=== PATIENT | male | born 1935 | race Caucasian/White ===

== ENCOUNTER 2017-02-13 11:06 | Outpatient (CLI) | payer MEDICARE, OTHER | END 2017-02-13 11:07 | disposition home or self-care (01) | LOC: SC 11:06 | PROVIDERS: ATTEND Nurse Practitioner Family | DX: G47.33 Obstructive sleep apnea (adult) (pediatric) (principal) | CPT/HCPCS: 99214; G0463; 99212 ==

== ENCOUNTER 2017-02-14 07:10 | Outpatient (CLI) | payer MEDICARE, OTHER ==
[2017-02-14 12:38] LABS: BASOPHILS % (AUTO) 0.3 %; EOSINOPHILS # (AUTO) 0.4 10^3/uL (0.0-0.7); EOSINOPHILS % (AUTO) 5.6 %; HCT - HEMATOCRIT 45.6 % (42.0-52.0); HGB - HEMOGLOBIN 15.1 g/dL (14.0-18.0); LYMPHOCYTES % (AUTO) 27.7 %; MEAN CORPUSCULAR VOLUME 90.7 fL (80.0-94.0); MEAN PLATELET VOLUME 9.4 fL (7.4-11.4); MONOCYTES # (AUTO) 0.9 10^3/uL (0.0-1.0); MONOCYTES % (AUTO) 12.8 %; NEUTROPHILS # (AUTO) 3.9 10^3/uL (1.5-6.6); NEUTROPHILS % (AUTO) 53.6 %; NUCLEATED RED BLOOD CELLS AUTO 0.1 /100WBC; RED BLOOD COUNT 5.03 10^6/uL (4.70-6.10); RED CELL DISTRIBUTION WIDTH 13.5 % (12.0-15.0); UNCORRECTED WHITE BLOOD COUNT 7.2 x10^3/uL; WHITE BLOOD COUNT 7.2 x10^3/uL (4.8-10.8)
[2017-02-14 13:07] LABS: ALBUMIN/GLOBULIN RATIO 1.7 (1.0-2.2); BILIRUBIN,TOTAL 0.4 mg/dL (0.2-1.0); BUN - BLOOD UREA NITROGEN 22 mg/dL (6-20); CALCIUM 9.1 mg/dL (8.5-10.3); CARBON DIOXIDE - CO2 28 mmol/L (21-32); CHLORIDE 104 mmol/L (101-111); CHOL/HDL RATIO 4.4 (<5.0); CHOLESTEROL 160 mg/dL; CREATININE 1.4 mg/dL (0.6-1.2); GFR - MDRD 48 (>89); GLUCOSE 104 mg/dL (70-100); HDL CHOLESTEROL 36 mg/dL; LDL/HDL RATIO 2.7 (<3.6); POTASSIUM 4.3 mmol/L (3.5-5.0); SODIUM 138 mmol/L (135-145); TOTAL PROTEIN 6.9 g/dL (6.7-8.2); TRIGLYCERIDES 133 mg/dL; VLDL CHOLESTEROL 27 mg/dL
== END 2017-02-14 07:11 | disposition home or self-care (01) ==
LOC: LAB.WCP 07:10
PROVIDERS: ATTEND Family Medicine
DX: C61 Malignant neoplasm of prostate (principal); E78.2 Mixed hyperlipidemia; K21.9 Gastro-esophageal reflux disease without esophagitis
CPT/HCPCS: 36415; 80053; 80061; 84443; 85025; G0103; 84153

== ENCOUNTER 2017-12-14 07:06 | Outpatient (CLI) | payer MEDICARE, OTHER ==
[2017-12-14 12:22] LABS: BASOPHILS % (AUTO) 0.4 %; EOSINOPHILS # (AUTO) 0.3 10^3/uL (0.0-0.7); EOSINOPHILS % (AUTO) 4.2 %; HGB - HEMOGLOBIN 14.4 g/dL (14.0-18.0); LYMPHOCYTES # (AUTO) 1.7 10^3/uL (1.5-3.5); LYMPHOCYTES % (AUTO) 25.8 %; MEAN CORPUSCULAR HEMOGLOBIN 30.4 pg (27.0-31.0); MEAN CORPUSCULAR VOLUME 92.1 fL (80.0-94.0); MONOCYTES # (AUTO) 0.9 10^3/uL (0.0-1.0); MONOCYTES % (AUTO) 13.2 %; NEUTROPHILS # (AUTO) 3.6 10^3/uL (1.5-6.6); NEUTROPHILS % (AUTO) 56.4 %; PLT - PLATELET COUNT 240 10^3/uL (130-450); RED BLOOD COUNT 4.73 10^6/uL (4.70-6.10); RED CELL DISTRIBUTION WIDTH 13.6 % (12.0-15.0); WHITE BLOOD COUNT 6.4 x10^3/uL (4.8-10.8)
[2017-12-14 12:40] LABS: ALBUMIN 4.2 g/dL (3.2-5.5); ALBUMIN/GLOBULIN RATIO 1.6 (1.0-2.2); ALKALINE PHOSPHATASE 35 IU/L (42-121); ALT ALANINE AMINOTRANSFERASE 21 IU/L (10-60); AST ASPARTATE AMINOTRANSFERASE 23 IU/L (10-42); BILIRUBIN,TOTAL 0.9 mg/dL (0.2-1.0); BUN - BLOOD UREA NITROGEN 19 mg/dL (6-20); CALCIUM 9.2 mg/dL (8.5-10.3); CARBON DIOXIDE - CO2 27 mmol/L (21-32); CHLORIDE 103 mmol/L (101-111); CHOLESTEROL 152 mg/dL; CREATININE 1.2 mg/dL (0.6-1.2); GFR - MDRD 58 (>89); GLUCOSE 108 mg/dL (70-100); HDL CHOLESTEROL 38 mg/dL; LDL CHOLESTEROL,CALCULATED 96 mg/dL; LDL/HDL RATIO 2.5 (<3.6); SODIUM 138 mmol/L (135-145); TOTAL PROTEIN 6.8 g/dL (6.7-8.2); VLDL CHOLESTEROL 18 mg/dL
== END 2017-12-14 07:07 | disposition home or self-care (01) ==
LOC: LAB.WCP 07:06
PROVIDERS: ATTEND Family Medicine
DX: C61 Malignant neoplasm of prostate (principal); E78.2 Mixed hyperlipidemia
CPT/HCPCS: 36415; 80053; 80061; 83721; 84153; 84443; 85025

== ENCOUNTER 2018-02-05 14:33 | Outpatient (CLI) | payer MEDICARE, OTHER | END 2018-02-05 14:34 | disposition home or self-care (01) | LOC: SC 14:33 | PROVIDERS: ATTEND Nurse Practitioner Family | DX: G47.33 Obstructive sleep apnea (adult) (pediatric) (principal) | CPT/HCPCS: 99214; G0463; 99212 ==

== ENCOUNTER 2018-03-12 08:00 | Outpatient (CLI) | payer MEDICARE, OTHER | END 2018-03-12 08:01 | disposition home or self-care (01) | LOC: LAB.WCP 08:00 | PROVIDERS: ATTEND Family Medicine | DX: M79.662 Pain in left lower leg (principal) | CPT/HCPCS: 36415; 85379 ==

== ENCOUNTER 2018-03-22 16:02 | Outpatient (CLI) | payer MEDICARE, OTHER ==
--- NOTE | 2018-03-23 10:39 | Ultrasound Report ---
Reason: SHOULDER JOINT PAIN, LEFT,RUPTURED BAKERS CYST Procedure Date: 03/22/2018 Accession Number: [id number] / [id number] Procedure: US - Ext Limited Non Vascular CPT Code: FULL RESULT: EXAM: LEFT LOWER EXTREMITY ULTRASOUND - LIMITED EXAM DATE: 03/22/2018 04:33 PM. CLINICAL HISTORY: Left shoulder joint pain, ruptured Dimas's cyst. COMPARISON: None. TECHNIQUE: Real-time scanning was performed with static images obtained. FINDINGS: In the region of the left popliteal fossa is a relatively well demarcated hypoechoic heterogeneous mass measuring 3.9 x 1.5 x 1.9 cm which demonstrates scant apparent internal vascularity. This does not definitely communicate with the joint space via the semimembranosus/medial head of the gastrocnemius interspace. IMPRESSION: The appearance is not consistent with a ruptured or typical Dimas's cyst. An evolving hematoma within a Dimas's cyst can have this appearance, though a communication with the knee joint space between the semimembranosus and medial head of the gastrocnemius is not definitely identified to make this characterization. The sharp demarcation seen in relation to nearby muscle fascial compartments is suggestive of the possibility of a musculotendinous tear with hematoma versus uncharacterized mass. Radiologically, next steps would be a CT with intravenous contrast or MRI of the knee with and without contrast extending to include the entire popliteal fossa. [facility]
--- NOTE | 2018-03-23 13:16 | MRI Report ---
Reason: SHOULDER JOINT PAIN, LEFT,RUPTURED BAKERS CYST Procedure Date: 03/22/2018 Accession Number: [id number] / [id number] Procedure: MRI - Shoulder LT W/O CPT Code: FULL RESULT: EXAM: LEFT SHOULDER MRI WITHOUT CONTRAST EXAM DATE: 03/22/2018 06:03 PM. CLINICAL HISTORY: Shoulder joint pain. COMPARISON: Radiographs 01/10/2018. TECHNIQUE: Multiplanar, multisequence T1-weighted and fluid-sensitive sequences of the shoulder without contrast. Other: None. FINDINGS: Evaluation mildly limited by patient motion and artifact despite repeat sequences. Acromioclavicular Region: The acromion is type II with small subacromial enthesophyte. Mild degenerative change of the joint with small inferiorly directed osteophytes and minimal joint effusion. The coracoacromial and coracoclavicular ligaments are intact. Mild subacromial/subdeltoid bursal fluid. Moderate fluid in the subcoracoid bursa. Glenohumeral Region: Minimal superior subluxation of the humeral head. Minimal joint fluid. Diffuse shallow partial-thickness cartilage loss. The glenohumeral ligaments and joint capsule are unremarkable. Bone Marrow: No fracture. 1.7 cm lobulated lesion in the posterior lateral aspect proximal humeral metadiaphysis with sclerotic borders and no adjacent edema, suggestive of benign lesion such as enchondroma. Labrum: Degenerative fraying posterior superior aspect. Musculature/Rotator Cuff: Moderate supraspinatus tendinopathy with deep partial thickness intrasubstance and articular surface tear at the anterior and central fibers involving a 2.0 x 3.6 cm region, AP by transverse. This involves greater than 50% of the tendon thickness. Possible focal full-thickness extension to the bursal surface at the central fibers at the level of the acromion. Mild infraspinatus tendinopathy. Teres minor tendon intact. Mild subscapularis tendinopathy with subtle partial thickness undersurface tearing at the mid to superior insertion. No edema or fatty atrophy. Biceps Tendon: The long head of the biceps tendon and biceps waqas are intact. Other: The subcutaneous tissues are unremarkable. IMPRESSION: 1. Moderate supraspinatus tendinopathy with deep partial thickness intrasubstance and articular surface tear anterior and central fibers. Possible full-thickness extension at the central fibers. 2. Mild infraspinatus tendinopathy. 3. Mild subscapularis tendinopathy with minimal undersurface tearing at the insertion. 4. Degenerative fraying posterior superior labrum. 5. Moderate subacromial subdeltoid bursitis. 6. Subacromial enthesophyte and acromioclavicular osteophytes may contribute to symptoms of impingement. [facility] MUSCULOSKELETAL RADIOLOGY SECTION
== END 2018-03-22 16:03 | disposition home or self-care (01) ==
LOC: DI 16:02
PROVIDERS: ATTEND Family Medicine
DX: M67.814 Other specified disorders of tendon, left shoulder (principal); M75.52 Bursitis of left shoulder; M25.712 Osteophyte, left shoulder; M66.0 Rupture of popliteal cyst
CPT/HCPCS: 76882

== ENCOUNTER 2018-03-29 08:00 | Outpatient (CLI) | payer MEDICARE, OTHER ==
[2018-03-29 13:52] LABS: CALCIUM 9.2 mg/dL (8.5-10.3); CREATININE 1.2 mg/dL (0.6-1.2)
== END 2018-03-29 23:59 | disposition home or self-care (01) ==
LOC: LAB.WCP 08:00
PROVIDERS: ATTEND Family Medicine
DX: N18.9 Chronic kidney disease, unspecified (principal)
CPT/HCPCS: 36415; 80048

== ENCOUNTER 2018-04-03 15:25 | Outpatient (CLI) | payer MEDICARE, OTHER ==
[2018-04-03] MEDS ORDERED: GADOBUTROL 10 MMOL/10 ML VIAL ONE (15:59)
[2018-04-03] MEDS ORDERED: GADOBUTROL 10 MMOL/10 ML VIAL IVP ONE (17:52)
--- NOTE | 2018-04-04 15:15 | MRI Report ---
Reason: RUPTURED BAKERS CYST Procedure Date: 04/03/2018 Accession Number: [id number] / [id number] Procedure: MRI - Knee LT W/WO CPT Code: FULL RESULT: EXAM: LEFT KNEE MRI WITHOUT AND WITH CONTRAST EXAM DATE: 04/03/2018 06:09 PM. CLINICAL HISTORY: Ruptured Dimas's cyst. COMPARISON: Radiograph 11/01/2017. TECHNIQUE: Multiplanar, multisequence T1-weighted and fluid-sensitive sequences of the knee before and after administration of intravenous contrast. IV contrast: 10 mL Gadavist. Other: None. FINDINGS: Bones: Mild tricompartmental osteophytes are present. Periarticular reactive marrow edema is in the medial compartment. Articular Cartilage: Lateral compartment articular cartilage is intact. There is full-thickness cartilage loss at the inferior portion of the medial femoral condyle. Moderate medial tibial plateau articular cartilage thinning is present. Medial Meniscus: A horizontal tear of the posterior horn of the medial meniscus as seen on series 601, image 23. Lateral Meniscus: The anterior horn of the lateral meniscus demonstrates a longitudinal tear as seen on series 601, image 7. Cruciate Ligaments: The anterior and posterior cruciate ligaments are intact. Collateral Ligaments: The medial collateral and lateral collateral ligamentous structures are intact. Tendons: The quadriceps, patellar, semimembranosus, and popliteus tendons are unremarkable. Musculature: The patient has a cyst within the popliteus muscle that potentially contains a loose body measuring 9 mm (401/8). This could be the result of a prior ganglion cyst or a tear within the muscle. Other: A mild effusion is accompanied by synovitis. A moderate-sized popliteal cyst is ruptured. No popliteal cyst. The medial and lateral retinacula are intact. Prepatellar subcutaneous edema is present. IMPRESSION: 1. Mild osteoarthritis. 2. Tears of the medial and lateral menisci. 3. Ruptured popliteal cyst. 4. Remnants of either grade 2 strain or ganglion cyst in the popliteus muscle. [facility] MUSCULOSKELETAL RADIOLOGY SECTION
== END 2018-04-03 15:26 | disposition home or self-care (01) ==
LOC: DI 15:25
PROVIDERS: ATTEND Family Medicine
DX: M66.0 Rupture of popliteal cyst (principal); S83.242A Other tear of medial meniscus, current injury, left knee, initial encounter; S83.282A Other tear of lateral meniscus, current injury, left knee, initial encounter; M17.12 Unilateral primary osteoarthritis, left knee
CPT/HCPCS: 73723; A9585

== ENCOUNTER 2018-04-09 11:13 | Outpatient (CLI) | payer MEDICARE, OTHER ==
[2018-04-09 19:22] LABS: BASOPHILS % (AUTO) 0.5 %; EOSINOPHILS # (AUTO) 0.2 10^3/uL (0.0-0.7); EOSINOPHILS % (AUTO) 3.3 %; HGB - HEMOGLOBIN 13.9 g/dL (14.0-18.0); LYMPHOCYTES # (AUTO) 2.3 10^3/uL (1.5-3.5); LYMPHOCYTES % (AUTO) 31.9 %; MEAN CORPUSCULAR HEMOGLOBIN 30.2 pg (27.0-31.0); MEAN CORPUSCULAR HGB CONC 32.2 g/dL (32.0-36.0); MEAN CORPUSCULAR VOLUME 93.8 fL (80.0-94.0); MEAN PLATELET VOLUME 9.6 fL (7.4-11.4); MONOCYTES % (AUTO) 14.6 %; NEUTROPHILS # (AUTO) 3.5 10^3/uL (1.5-6.6); NEUTROPHILS % (AUTO) 49.7 %; PLT - PLATELET COUNT 273 10^3/uL (130-450); RED BLOOD COUNT 4.61 10^6/uL (4.70-6.10); RED CELL DISTRIBUTION WIDTH 13.9 % (12.0-15.0); WHITE BLOOD COUNT 7.1 x10^3/uL (4.8-10.8)
[2018-04-09 19:49] LABS: CRP - C-REACTIVE PROTEIN < 1.0 mg/dL (0-1.0); URIC ACID 5.7 mg/dL (2.6-7.2)
[2018-04-09 19:52] LABS: RHEUMATOID FACTOR NEGATIVE (Negative)
[2018-04-11 13:50] LABS: ANA SCREEN NEGATIVE (NEGATIVE)
== END 2018-04-09 23:59 | disposition home or self-care (01) ==
LOC: LAB.WCP 11:13
PROVIDERS: ATTEND Orthopaedic Surgery
DX: Z87.39 Personal history of other diseases of the musculoskeletal system and connective tissue (principal); M75.52 Bursitis of left shoulder
CPT/HCPCS: 36415; 84550; 85025; 85651; 86038; 86140; 86430

== ENCOUNTER 2019-02-15 07:29 | Outpatient (CLI) | payer MEDICARE, OTHER ==
[2019-02-15 12:23] LABS: BASOPHILS % (AUTO) 0.5 %; EOSINOPHILS # (AUTO) 0.3 10^3/uL (0.0-0.7); EOSINOPHILS % (AUTO) 3.9 %; HGB - HEMOGLOBIN 14.6 g/dL (14.0-18.0); LYMPHOCYTES % (AUTO) 25.5 %; MEAN CORPUSCULAR HEMOGLOBIN 29.1 pg (27.0-31.0); MEAN CORPUSCULAR HGB CONC 30.8 g/dL (32.0-36.0); MEAN CORPUSCULAR VOLUME 94.4 fL (80.0-94.0); MEAN PLATELET VOLUME 11.3 fL (7.4-11.4); MONOCYTES # (AUTO) 0.9 10^3/uL (0.0-1.0); MONOCYTES % (AUTO) 11.7 %; NEUTROPHILS # (AUTO) 4.4 10^3/uL (1.5-6.6); PLT - PLATELET COUNT 270 10^3/uL (130-450); RED BLOOD COUNT 5.02 10^6/uL (4.70-6.10); RED CELL DISTRIBUTION WIDTH 13.3 % (12.0-15.0); WHITE BLOOD COUNT 7.7 x10^3/uL (4.8-10.8)
[2019-02-15 12:36] LABS: ALBUMIN 4.1 g/dL (3.2-5.5); ALBUMIN/GLOBULIN RATIO 1.6 (1.0-2.2); ALKALINE PHOSPHATASE 47 IU/L (42-121); ALT ALANINE AMINOTRANSFERASE 25 IU/L (10-60); AST ASPARTATE AMINOTRANSFERASE 21 IU/L (10-42); BILIRUBIN,TOTAL 0.6 mg/dL (0.2-1.0); BUN - BLOOD UREA NITROGEN 15 mg/dL (6-20); CALCIUM 9.3 mg/dL (8.5-10.3); CARBON DIOXIDE - CO2 30 mmol/L (21-32); CHLORIDE 102 mmol/L (101-111); CHOL/HDL RATIO 4.7 (<5.0); CHOLESTEROL 187 mg/dL; CREATININE 1.1 mg/dL (0.6-1.2); GFR - MDRD 64 (>89); GLUCOSE 113 mg/dL (70-100); HDL CHOLESTEROL 40 mg/dL; LDL CHOLESTEROL,CALCULATED 114 mg/dL; LDL/HDL RATIO 2.9 (<3.6); SODIUM 140 mmol/L (135-145); TOTAL PROTEIN 6.7 g/dL (6.7-8.2); VLDL CHOLESTEROL 33 mg/dL
== END 2019-02-15 23:59 | disposition home or self-care (01) ==
LOC: LAB.N 07:29
PROVIDERS: ATTEND Family Medicine
DX: E78.2 Mixed hyperlipidemia (principal)
CPT/HCPCS: 36415; 80053; 80061; 83721; 84443; 85025

== ENCOUNTER 2019-02-19 12:50 | Outpatient (CLI) | payer MEDICARE, OTHER ==
[2019-02-19 13:44] VITALS: BP 138/70
--- NOTE | 2019-02-19 13:44 | SLEEP CARE CONSULTATION ---
Information from patient questionnaire entered by Viridiana Cruz. I have reviewed and concur with the information entered by Viridiana Cruz. This document represents the service I personally performed and the decisions made by me, Darcy Lino, RN, MSN, STONE OPERATOR. History of Present Illness Previous diagnosis: Moderate, Obstructive Sleep Apnea-Hypopnea Syndrome AHI: 26.4 Reason for CPAP/BiPAP follow up: annual Equipment type: CPAP Equipment obtained from: [employer] Mask style: Nasal Backup mask available: Yes Last cushion change: a month ago Prior sleep studies: Yes HPI additional information: Additional medical information is that he had left knee replacement and gained weight as unable to work in garden for a while. CPAP Compliance Data - Data Reviewed with Patient Average duration of nightly device use: 7H 52M Compliance rate %: 100 Current pressure setting (cmH2O): 6 Humidity settin Average residual AHI: 1.1 Average large leak: 30 seconds Subjective Patient concerns: denies: aerophagia, mask discomfort, air blowing in eyes, mask leak noise, condensation in mask/hose, nasal congestion, dry mouth, nose, throat, epistaxis Observed to snore while using device: No Current pressure setting perceived as: comfortable On therapy, patient: reports: sleeping better, awakening more refreshed, being more awake and alert during the day, more rested overall. denies: drowsiness while driving Initial [place] Sleepiness Scale score: 4 Current [place] Sleepiness Scale score: 8 Allergies and Home Medications Known drug allergies: No Home medication list reviewed: Yes Allergy and home medication list: Medication Name (generic/name brand) Strength & Dosage Omeprazole 20mg cap one twice daily simvastatin 20mg bedtime Escitalopram 10mg tab one daily lisinopril 10mg one daily Tylenol Extra Strength OTC tab prn Motrin 200mg tab prn metamucil 1 tsp daily Review of Systems Review of systems same as previous: No (diagnosed with hypertension / reported one episode of brief chest pain) Physical Exam Blood Pressure: 138/70 Cuff size: long Heart Rate: 75 O2 Saturation: 97 Height: 5 ft 10 in Weight: 223 lb Body Mass Index: 32.0 BMI Classification: Obesity Class 1 Impression and Plan 1. Obstructive Sleep Apnea-Hypopnea Syndrome, moderate, with fair treatment compliance and good apnea control. On CPAP therapy, the patient has better sleep quality and is more rested overall. He is aware of cleaning methods and how often to obtain supplies. He has gained weight and is now class 2 obesity. I discussed how his weight can increase his apnea risk and overall health risks. He is advised to lose weight by reducing portion size and staying away from refined foods. He can discuss further with Dr. Awad. Patient's apnea severity and rationale for treatment to reduce apnea, improve sleep quality and reduce cardiovascular and cerebrovascular events was reviewed. I also reviewed the benefit of consistent device use of CPAP for hypertension, gastric reflux . Blood pressure reading good today but has been elevated at home despite new medication and patient wonders if his home monitor is working. He was advised to stop by his PCP clinic after this visit down the cantu to report his concerns about his blood pressure readings and check about how to have his BP monitor checked for accuracy there. Patient agreed with plan. 2. Chest pain, brief episode of chest pressure for less than a minute of moderate intensity reported to have occurred a few weeks ago while resting in bed. No shortness of breath, lightheadedness or radiation of pain. He did not discuss with his PCP at his last visit and was advised to inform him at his next follow up scheduled soon. He is aware of 911 guidelines when I reviewed and rationale for using if chest pain recurs, and if associated with other symptoms as noted on 911 reference card. * Continue CPAP pressure at 6 cmH2O * Notify me if snoring with mask or feeling that the pressure is too much or too little * Attempt to lose weight * Stop by clinic to check re elevated home BP readings and to check BP monitor accuracy * Follow up with Dr. Awad about chest pain. * Return for follow up in 1 year , or sooner if concerns arise I spent 100% of this 30 minute visit face to face with the patient with greater than 50% of this was spent time counseling the patient and coordination of care.
== END 2019-02-19 12:51 | disposition home or self-care (01) ==
LOC: SC 12:50
PROVIDERS: ATTEND Nurse Practitioner Family
DX: G47.33 Obstructive sleep apnea (adult) (pediatric) (principal); E66.9 Obesity, unspecified; Z68.32 Body mass index [BMI] 32.0-32.9, adult
CPT/HCPCS: 99214; G0463; 99212

== ENCOUNTER 2020-02-21 10:18 | Outpatient (CLI) | payer MEDICARE, OTHER ==
--- NOTE | 2020-02-21 10:52 | SLEEP CARE CONSULTATION ---
Information from patient questionnaire entered by Christina Chambers. I have reviewed and concur with the information entered by Christina Chambers. This document represents the service I personally performed and the decisions made by , Samra Edwards ARNP. History of Present Illness Service Date and Time: 02/21/2020 1018 Previous diagnosis: Moderate, Obstructive Sleep Apnea-Hypopnea Syndrome AHI: 26.4 (in 2007) Reason for follow up: annual (last seen 2019) Equipment type: CPAP Equipment obtained from: [facility] (needs to change, not able to get supplies) Mask style: Nasal Mask brand: Respironics Backup mask available: Yes (old mask) Last cushion change: last week Prior sleep studies: Yes Year and Where: 2007 - [facility] Type of Sleep Study: Polysomnography HPI additional information: WILMER HORTA was diagnosed to have moderate, AHI 26.4, obstructive sleep apnea- hypopnea syndrome and returned today for CPAP therapy annual follow-up. CPAP Compliance Data - Data Reviewed with Patient Average duration of nightly device use: 7 hours 52 minutes Compliance rate %: 98.9 Current pressure setting (cmH2O): 6 Humidity settin Average residual AHI: 2.4 Central apnea: 0.2 Obstructive apnea: 0.2 Average large leak: 7 minutes 43 seconds Subjective Patient concerns: denies: aerophagia, mask discomfort, air blowing in eyes, mask leak noise, condensation in mask/hose, nasal congestion, dry mouth, nose, throat, epistaxis, other Observed to snore while using device: No Current pressure setting perceived as: comfortable On therapy, patient: reports: sleeping better, awakening more refreshed, being more awake and alert during the day, more rested overall. denies: drowsiness while driving Initial [place] Sleepiness Scale score: 10 (in 2007) Current [place] Sleepiness Scale score: 5 Allergies and Home Medications Drug allergies reviewed: Yes (NKDA) Home medication list reviewed: Yes (no changes) Review of Systems Review of systems same as previous: Yes (no changes) Physical Exam Heart Rate: 87 O2 Saturation: 98 Height: 5 ft 10 in Weight: 215 lb Body Mass Index: 30.8 BMI Classification: Obese Impression and Plan 1. Obstructive Sleep Apnea-Hypopnea Syndrome, moderate, with good treatment compliance and good apnea control. On CPAP therapy, the patient has better sleep quality and is more rested overall. Patient has been with [employer] for supplies and they no longer are able to get him supplies. Patient was informed that another DME can be used. I will have my economic development coordinator inform of DME options. A DWO prescription will then be made. Patient advised to contact this office if further supply problems. Patient's apnea severity and rationale for treatment to reduce apnea, improve sleep quality and reduce cardiovascular and cerebrovascular events was reviewed. I also reviewed the benefit of consistent device use of CPAP for hypertension and gastric reflux. * Continue CPAP pressure at 6 cmH2O * Notify me if snoring with mask or feeling that the pressure is too much or too little * Attempt to lose weight * Call this office if any problems using CPAP * Return for follow up in 1 year , or sooner if concerns arise Counseling Topics: Spare mask Visit Type: In Office Time Spent with Patient (minutes): 18 Provider Statement: I spent 100% of the Face to Face Visit with the patient with greater than 50% spent counseling the patient and coordination of care.
== END 2020-02-21 10:19 | disposition home or self-care (01) ==
LOC: SC 10:18
PROVIDERS: ATTEND Nurse Practitioner Family
DX: G47.33 Obstructive sleep apnea (adult) (pediatric) (principal); E66.9 Obesity, unspecified; Z68.30 Body mass index [BMI] 30.0-30.9, adult
CPT/HCPCS: 99212; G0463

== ENCOUNTER 2021-03-02 09:40 | Outpatient (CLI) | payer MEDICARE, OTHER ==
[2021-03-02 10:34] VITALS: BP 132/74
--- NOTE | 2021-03-02 10:34 | SLEEP CARE CONSULTATION ---
Information from patient questionnaire entered by Rom Guerra MA. I have reviewed and concur with the information entered by oRm Guerra MA. This document represents the service I personally performed and the decisions made by , Samra Edwards ARNP. History of Present Illness Service Date and Time: 03/02/2021 0940 Previous diagnosis: Moderate, Obstructive Sleep Apnea-Hypopnea Syndrome AHI: 26.4 (in 2007) Reason for follow up: annual (last seen 01/2020) Equipment type: CPAP Equipment obtained from: [employer] (he has not gotten supplies over last year; tried to but did not get any) Mask style: Nasal Backup mask available: No (old mask) Last cushion change: don't know Prior sleep studies: Yes Year and Where: 2007 - [facility] Type of Sleep Study: Polysomnography HPI additional information: WILMER HORTA was diagnosed to have moderate, AHI 26.4, obstructive sleep apnea- hypopnea syndrome and returned today for CPAP therapy annual follow-up. Sleep Study - Results Type of Sleep Study: Polysomnography [facility] Yes [facility] Compliance Data - Data Reviewed with Patient Average duration of nightly device use: 8 hours 22 minutes Compliance rate %: 91.7 Current pressure setting (cmH2O): 6.0 Average residual AHI: 3.0 Average large leak: 11 minutes 41 seconds Compliance data discussion: Patient brought in his memory chip but it was blank. He states he went on a trip for 2 weeks and could not take his device with him, so there is no information for those weeks. He was instructed to bring in his machine so we can get his compliance information from the machine. Subjective Patient concerns: denies: aerophagia, mask discomfort, air blowing in eyes, mask leak noise, condensation in mask/hose, nasal congestion, dry mouth, nose, throat, epistaxis, other Observed to snore while using device: No Current pressure setting perceived as: comfortable On therapy, patient: reports: sleeping better, awakening more refreshed, being more awake and alert during the day, more rested overall. denies: drowsiness while driving Initial [place] Sleepiness Scale score: 10 (in 2007) Current [place] Sleepiness Scale score: 3 (2020) Allergies and Home Medications Home medication list reviewed: Yes Allergy and home medication list: Calcium B12 Review of Systems Review of systems same as previous: No (increasing memory issues - appt with PCP next week) Physical Exam Vital signs obtained and entered by: Mari ECHAVARRIA Blood Pressure: 132/74 (left) Cuff size: wrist Heart Rate: 76 O2 Saturation: 97 (with mask) Height: 5 ft 10 in Weight: 215 lb (without boots) Body Mass Index: 30.8 BMI Classification: Obese Impression and Plan 1. Obstructive Sleep Apnea-Hypopnea Syndrome, moderate, with good treatment compliance and good apnea control. On CPAP therapy, the patient has better sleep quality and is more rested overall. Patient has not been able to get any supplies from [employer]. He states he called them and they told him he needed a prescription. He states he had a good supply left so he just use those instead of ordering any new ones. He is now out of filters and needs to get supplies. The patients CPAP is over 5 years old and of reasonable use. Thus, the CPAP will be updated. A DWO prescription will be made. Compliance guidelines for new device and follow up discussed. Patient has already registered their device for the recall. Patient denies any black particles seen in machine or hoses, any unusual odors coming from device. Patient has not experienced any physical symptoms such as upper airway irritation, headache, skin or eye irritation, asthma, nausea/vomiting, difficulty breathing or chest pain. If patient is not able to sleep due to waking up choking, gasping for air or other respiratory distress that they may decide to continue using it until it is either replaced or repaired. Since the patients current machine is at least 5 years old the patient is opting to update their device with a device that is not on the recall. Patient voiced understanding and agreement with plan. Patient was encouraged to lose weight for their overall health and to reduce apneas. Alex gilliland's apnea severity and rationale for treatment to reduce apnea, improve sleep quality and reduce cardiovascular and cerebrovascular events was reviewed. I also reviewed the benefit of consistent device use of CPAP for hypertension and gastric reflux. * Continue CPAP pressure at 6 cmH2O * Update supplies as needed * Update device * Notify me if snoring with mask or feeling that the pressure is too much or too little * Attempt to lose weight * Call this office if any problems using CPAP * Return for follow up one month after obtaining new device or sooner if concerns arise Addendum: Patient did bring in his machine and compliance download obtained. He is compliant with good apnea control. Counseling Topics: Spare mask, Weight loss health impact Visit Type: In Office Time Spent with Patient (minutes): 23 Provider Statement: I spent 100% of the Face to Face Visit with the patient with greater than 50% spent counseling the patient and coordination of care.
== END 2021-03-02 09:41 | disposition home or self-care (01) ==
LOC: SC 09:40
PROVIDERS: ATTEND Nurse Practitioner Family
DX: G47.33 Obstructive sleep apnea (adult) (pediatric) (principal); E66.9 Obesity, unspecified; Z68.30 Body mass index [BMI] 30.0-30.9, adult
CPT/HCPCS: 99213; G0463; 99212

== ENCOUNTER 2021-05-06 10:25 | Outpatient (CLI) | payer MEDICARE, OTHER ==
[2021-05-06 11:01] VITALS: BP 133/99
--- NOTE | 2021-05-06 11:01 | SLEEP CARE CONSULTATION ---
Information from patient questionnaire entered by Rom Guerra MA. I have reviewed and concur with the information entered by Rom Guerra MA. This document represents the service I personally performed and the decisions made by , Samra Edwards ARNP. History of Present Illness Service Date and Time: 05/06/2021 1025 Previous diagnosis: Moderate, Obstructive Sleep Apnea-Hypopnea Syndrome AHI: 26.4 (in 2007) Reason for follow up: first compliance after device update (SET UP 03/12) Equipment type: CPAP Equipment obtained from: [employer] (getting supplies as needed) Mask style: Nasal Backup mask available: Yes (old mask) Last cushion change: almost change [facility]: [facility] Type of [facility] HPI additional information: WILMER HORTA was diagnosed to have moderate, AHI 26.4, obstructive sleep apnea- hypopnea syndrome and returned today for CPAP therapy first compliance after updating device follow-up. Sleep Study - Results Type of Sleep Study: Polysomnography Prior sleep [facility]: Yes [facility] CP[facility] Compliance Data - Data Reviewed with Patient Average duration of nightly device use: 8 HOURS 25 MINUTES Compliance rate %: 100 Current pressure setting (cmH2O): 6 Average residual AHI: 1.2 Central apnea: .3 Obstructive apnea: .5 Average large leak: 22.4 Subjective Patient concerns: reports: dry mouth, nose, throat (breathing through mouth). denies: aerophagia, mask discomfort, air blowing in eyes, mask leak noise, condensation in mask/hose, nasal congestion, epistaxis, other Observed to snore while using device: No Current pressure setting perceived as: comfortable (seems a little high at onset but then gets better/comfortable) On therapy, patient: reports: sleeping better, awakening more refreshed, being more awake and alert during the day, more rested overall. denies: drowsiness while driving Initial [place] Sleepiness Scale score: 10 (in 2007) Current [place] Sleepiness Scale score: 7 (2021) Allergies and Home Medications Known drug allergies: No Drug allergies reviewed: Yes Home medication list reviewed: Yes (no changes) Review of Systems Review of systems same as previous: No (broke right side ribs, painful) Physical Exam Vital signs obtained and entered by: AMAURY TELLEZ Blood Pressure: 133/99 (LEFT, PULSE 90) Cuff size: wrist Heart Rate: 80 O2 Saturation: 96 (WITH PAPER MASK) Height: 5 ft 10 in Weight: 215 lb Body Mass Index: 30.8 BMI Classification: Obese Impression and Plan 1. Obstructive Sleep Apnea-Hypopnea Syndrome, moderate, with excellent treatment compliance and good apnea control. On CPAP therapy, the patient has better sleep quality and is more rested overall. Patient likes his new device but he runs out of water in chamber sooner. He gets some dry mouth but may be mouth venting. Patient's apnea severity and rationale for treatment to reduce apnea, improve sleep quality and reduce cardiovascular and cerebrovascular events was reviewed. I also reviewed the benefit of consistent device use of CPAP for hypertension and gastric reflux. Patient was encouraged to lose weight for their overall health and to reduce apneas. He recently fell and broke a few ribs. He was still in a little pain today. * Continue CPAP pressure at 6 cmH2O * Notify me if snoring with mask or feeling that the pressure is too much or too little * Attempt to lose weight * Call this office if any problems using CPAP * Return for follow up in 1 year, or sooner if concerns arise Counseling Topics: Spare mask, Weight loss health impact Visit Type: In Office Time Spent with Patient (minutes): 20 Provider Statement: I spent 100% of the Face to Face Visit with the patient with greater than 50% spent counseling the patient and coordination of care.
== END 2021-05-06 10:26 | disposition home or self-care (01) ==
LOC: SC 10:25
PROVIDERS: ATTEND Nurse Practitioner Family
DX: G47.33 Obstructive sleep apnea (adult) (pediatric) (principal); E66.9 Obesity, unspecified; Z68.30 Body mass index [BMI] 30.0-30.9, adult
CPT/HCPCS: 99213; G0463; 99212

== ENCOUNTER 2022-05-20 11:22 | Outpatient (CLI) | payer MEDICARE, OTHER ==
--- NOTE | 2022-05-20 11:56 | SLEEP CARE CONSULTATION ---
Information from patient questionnaire entered by Annalee Tam. I have reviewed and concur with the information entered by Annalee Tam. This document represents the service I personally performed and the decisions made by , Samra Edwards ARNP. History of Present Illness Service Date and Time: 05/20/2022 1122 Previous diagnosis: Moderate, Obstructive Sleep Apnea-Hypopnea Syndrome AHI: 26.4 (in 2007) Reason for follow up: annual (LAST SEEN 04/2021) Equipment type: CPAP (RESMED Airsense 11, s/u 03/12/2022) Equipment obtained from: [employer] (getting supplies as needed) Mask style: Nasal Backup mask available: Yes (old mask) Last cushion change: 3 months Prior sleep studies: Yes Year and Where: 2007 - [facility] Type of Sleep Study: Polysomnography HPI additional information: WILMER HORTA was diagnosed to have moderate, AHI 26.4, obstructive sleep apnea- hypopnea syndrome and returned today for CPAP therapy annual follow-up. Sleep Study - Results Type of Sleep Study: Polysomnography Prior sleep studies: Yes Year and Where: 2007 - [facility] CPAP Compliance Data - Data Reviewed with Patient Average duration of nightly device use: 8 hours, 31 minutes Compliance rate %: 100 (11/20/21 to 05/18/22; 180/180 days used) Current pressure setting (cmH2O): 6 Average residual AHI: 0.6 Central apnea: 0.3 Obstructive apnea: 0.2 Subjective Patient concerns: denies: aerophagia, mask discomfort, air blowing in eyes, mask leak noise, condensation in mask/hose, nasal congestion, dry mouth, nose, throat, epistaxis Observed to snore while using device: No Current pressure setting perceived as: comfortable On therapy, patient: reports: sleeping better, awakening more refreshed, being more awake and alert during the day, more rested overall. denies: drowsiness while driving Initial [place] Sleepiness Scale score: 10 (in 2007) Current [place] Sleepiness Scale score: 5 (05/20/22) Allergies and Home Medications Drug allergies reviewed: Yes (NKDA) Home medication list reviewed: Yes (no changes) Review of Systems Review of systems same as previous: Yes (no changes) Physical Exam Vital signs obtained and entered by: Elias TAM MA Blood Pressure: 132/78 (left arm ) Cuff size: regular Heart Rate: 96 O2 Saturation: 81 Height: 5 ft 10 in Weight: 212 lb Body Mass Index: 30.4 BMI Classification: Obese Impression and Plan 1. Obstructive Sleep Apnea-Hypopnea Syndrome, moderate, with good treatment compliance and good apnea control. On CPAP therapy, the patient has better sleep quality and is more rested overall. Patient has significant improvement of their sleep apnea and are satisfied with current CPAP therapy. Patient denies problems with oral dryness, nasal congestion, epistaxis, skin irritation or aerophagia. Patient's apnea severity and rationale for treatment to reduce apnea, improve sleep quality and reduce cardiovascular and cerebrovascular events was reviewed. I also reviewed the benefit of consistent device use of CPAP for hypertension and gastric reflux. 2. Obesity, unspecified. Currently patients BMI is 30.4. He states he tried GoLo and it worked for about 10 pounds loss but he did not stick with it. Obesi ty increases the risk of apnea, CPAP pressure requirements and overall health risks especially cardiovascular and diabetes. Thus patient is advised to lose weight. * Continue CPAP pressure at 6 cmH2O * Update supplies * Notify me if snoring with mask or feeling that the pressure is too much or too little * Attempt to lose weight * Call this office if any problems using CPAP * Return for follow up in 1 year, or sooner if concerns arise Counseling Topics: Spare mask, Weight loss health impact Visit Type: In Office Time Spent with Patient (minutes): 20 Provider Statement: I spent 100% of the Face to Face Visit with the patient with greater than 50% spent counseling the patient and coordination of care.
[2022-05-20 11:58] VITALS: BP 132/78
== END 2022-05-20 11:23 | disposition home or self-care (01) ==
LOC: SC 11:22
PROVIDERS: ATTEND Nurse Practitioner Family
DX: G47.33 Obstructive sleep apnea (adult) (pediatric) (principal); E66.9 Obesity, unspecified; Z68.30 Body mass index [BMI] 30.0-30.9, adult
CPT/HCPCS: 99213; G0463; 99212